=== PATIENT | male | born 1985 | race Caucasian/White ===

== ENCOUNTER → 2020-05-02 | Outpatient (CLI) | payer OTHER | END | disposition home or self-care (01) | LOC: LABWHC1 16:10 | PROVIDERS: ATTEND Family Medicine | DX: R05 Cough (principal) | CPT/HCPCS: U0003; C9803 ==

== ENCOUNTER → 2020-05-13 | Outpatient (CLI) | payer OTHER ==
--- NOTE | 2020-05-13 10:58 | XR ---
EXAMINATION TYPE: XR chest 2V DATE OF EXAM: 05/13/2020 COMPARISON: NONE HISTORY: Cough and congestion. TECHNIQUE: Frontal and lateral views of the chest are obtained. FINDINGS: There is no focal air space opacity, pleural effusion, or pneumothorax seen. The cardiac silhouette size is within normal limits. Bilateral hilar prominence noted. The osseous structures ar e intact. IMPRESSION: No suspicious acute process. Bilateral hilar prominence, cannot exclude hilar adenopathy . Consider contrast-enhanced CT study to further evaluate.
== END | disposition home or self-care (01) ==
LOC: RADXRMAIN 10:26
PROVIDERS: ATTEND Family Medicine
DX: R59.0 Localized enlarged lymph nodes (principal)
CPT/HCPCS: 71046

== ENCOUNTER → 2020-05-17 | Outpatient (CLI) | payer OTHER ==
--- NOTE | 2020-05-17 15:18 | CT ---
EXAMINATION TYPE: CT chest w con DATE OF EXAM: 05/17/2020 COMPARISON: None HISTORY: abnormal cxr CT DLP: 511 mGycm Automated exposure control for dose reduction was used. CONTRAST: CT scan of the chest is performed with IV Contrast, patient injected with 100 mL of Isovue 300. FINDINGS: LUNGS: The lungs are grossly clear, there is no concerning parenchymal mass or nodule identified. T here is no pleural effusion or pneumothorax seen. The tracheobronchial tree is patent. MEDIASTINUM there is hilar and mediastinal adenopathy noted. Right hilar lymph node measures 3 cm. Blake bcarinal adenopathy measures 2.7 cm in short axis. Right paratracheal adenopathy measures 2.5 cm. Pre vascular space adenopathy measuring up to 1 cm. UPPER ABDOMEN: No significant abnormality appreciate d. OTHER: No additional significant abnormality is seen. IMPRESSION: 1. Hilar and mediastinal adenopathy as noted above. Correlate for lymphoma\leukemia. Adenopathy of ot her etiology is not excluded.
== END | disposition home or self-care (01) ==
LOC: RADCTMAIN 14:49
PROVIDERS: ATTEND Family Medicine
DX: R59.1 Generalized enlarged lymph nodes (principal)
CPT/HCPCS: 71260; Q9967

== ENCOUNTER 2020-06-12 20:17 | Emergency (ER) | payer OTHER ==
[2020-06-12 20:21] VITALS: TEMP 98.4
[2020-06-12] MEDS ORDERED: SODIUM CHLORIDE 0.9% 500 ML 500 ML IV STA ×2 (20:39→22:48)
[2020-06-12] MEDS ORDERED: MORPHINE SULFATE 4 MG/ML SYRINGE IM STA (20:40)
--- NOTE | 2020-06-12 20:54 | ED ---
General Adult HPI - General Chief complaint: Abdominal Pain Stated complaint: Abd/Leg Pain Time Seen by Provider: 06/12/20 20:25 Source: patient Mode of arrival: ambulatory Limitations: no limitations - History of Present Illness Initial comments: 35-year-old male presents to the emergency department for a chief complaint of right upper quadrant pain and left upper posterior leg pain. Patient states these both started at the same time about one hour ago. Patient states it is painful to press on his ribs in this area. Patient denies pain with movement of his left leg. Patient denies nausea or vomiting. Denies fevers. Patient did take Motrin prior to arrival. patient reports he was recently diagnosed with abnormal lymph nodes and is being biopsied for lymphoma next week. Patient has no other complaints at this time including shortness of breath, chest pain, nausea or vomiting, headache, or visual changes. - Related Data Home Medications Medication Instructions Recorded Confirmed Albuterol Sulfate [Proair Hfa] 2 puff INHALATION RT-Q4H PRN 06/12/20 06/12/20 Cetirizine HCl 10 mg PO DAILY 06/12/20 06/12/20 Ibuprofen 800 mg PO Q8H PRN 06/12/20 06/12/20 Allergies Allergy/AdvReac Type Severity Reaction Status Date / Time No Known Allergies Allergy Verified 06/12/20 21:11 Review of Systems ROS Statement: Those systems with pertinent positive or pertinent negative responses have been documented in the HPI. ROS Other: All systems not noted in ROS Statement are negative. Past Medical History Past Medical History: No Reported History History of Any Multi-Drug Resistant Organisms: None Reported Additional Past Surgical History / Comment(s): eye surgery, Past Psychological History: No Psychological Hx Reported Smoking Status: Never smoker Past Alcohol Use History: Occasional Past Drug Use History: None Reported General Exam Limitations: no limitations General appearance: alert, in no apparent distress Head exam: Present: atraumatic Eye exam: Present: normal appearance, PERRL, EOMI ENT exam: Present: normal exam, mucous membranes moist Neck exam: Present: normal inspection, full ROM. Absent: tenderness Respiratory exam: Present: normal lung sounds bilaterally, chest wall tenderness (Right-sided lateral chest wall tenderness.). Absent: respiratory distress Cardiovascular Exam: Present: regular rate, normal rhythm, normal heart sounds GI/Abdominal exam: Present: soft, normal bowel sounds. Absent: distended, tenderness, guarding, rebound, rigid Extremities exam: Present: full ROM (Full range motion of the left lower ex tremity.), normal capillary refill (Capillary refill is 2 seconds, DP pulse 2+ of the lower extremity). Absent: tenderness (No tenderness to left lower extremity.) Neurological exam: Present: alert Course Vital Signs 06/12/20 06/12/20 20:18 23:11 Temperature 98.4 F Pulse Rate 83 80 Respiratory 16 18 Rate Blood Pressure 168/104 121/79 O2 Sat by Pulse 99 98 Oximetry EKG Findings - EKG Comments: EKG Findings:: Normal sinus rhythm, ventricular rate 90, KY interval 150, QTC 440 Medical Decision Making - Medical Decision Making Vitals are stable. CBC and CMP are unremarkable. There is some slight elevation in creatinine of 1.36, patient hydrated. Given patient's right upper quadrant/ chest pain with history of likely new Diagnosis d-dimer was ordered which was elevated.CT abdomen and pelvis shows a few enlarged retroperitoneal lymph nodes compete level with patient's history of lymphoma. No pulmonary embolism. There is extensive mediastinal and right hilar lymphadenopathy compatible with lymphoma. At this time patient was reevaluated and did have significant improvement in symptoms. He is following up next week for his biopsy. Patient will return to the emergency room for any worsening symptoms. - Lab Data Result diagrams: 06/12/20 21:11 06/12/20 21:11 Lab Results 06/12/20 06/12/20 06/12/20 Range/Units 21:11 21:11 21:11 WBC 11.3 H (3.8-10.6) k/uL RBC 4.79 (4.30-5.90) m/uL Hgb 13.2 (13.0-17.5) gm/dL Hct 39.9 (39.0-53.0) % MCV 83.3 (80.0-100.0) fL MCH 27.5 (25.0-35.0) pg MCHC 33.0 (31.0-37.0) g/dL RDW 14.3 (11.5-15.5) % Plt Count 386 (150-450) k/uL MPV 7.7 Neutrophils % 64 % Lymphocytes % 26 % Monocytes % 6 % Eosinophils % 3 % Basophils % 0 % Neutrophils # 7.2 (1.3-7.7) k/uL Lymphocytes # 3.0 (1.0-4.8) k/uL Monocytes # 0.7 (0-1.0) k/uL Eosinophils # 0.3 (0-0.7) k/uL Basophils # 0.0 (0-0.2) k/uL D-Dimer 0.66 H (<0.60) mg/L FEU Sodium (137-145) mmol/L Potassium (3.5-5.1) mmol/L Chloride (98-107) mmol/L Carbon Dioxide (22-30) mmol/L Anion Gap mmol/L BUN (9-20) mg/dL Creatinine (0.66-1.25) mg/dL Est GFR (CKD-EPI)AfAm (>60 ml/min/1.73 sqM) Est GFR (CKD-EPI)NonAf (>60 ml/min/1.73 sqM) Glucose (74-99) mg/dL Calcium (8.4-10.2) mg/dL Total Bilirubin (0.2-1.3) mg/dL AST (17-59) U/L ALT (4-49) U/L Alkaline Phosphatase (38-126) U/L Troponin I (0.000-0.034) ng/mL Total Protein (6.3-8.2) g/dL Albumin (3.5-5.0) g/dL Amylase (30-110) U/L Lipase (23-300) U/L Urine Color Light Yellow Urine Appearance Clear (Clear) Urine pH 5.5 (5.0-8.0) Ur Specific Blanco 1.013 (1.001-1.035) Urine Protein Negative (Negative) Urine Glucose (UA) Negative (Negative) Urine Ketones Negative (Negative) Urine Blood Negative (Negative) Urine Nitrite Negative (Negative) Urine Bilirubin Negative (Negative) Urine Urobilinogen <2.0 (<2.0) mg/dL Ur Leukocyte Esterase Negative (Negative) 06/12/20 06/12/20 Range/Units 21:11 21:11 WBC (3.8-10.6) k/uL RBC (4.30-5.90) m/uL Hgb (13.0-17.5) gm/dL Hct (39.0-53.0) % MCV (80.0-100.0) fL MCH (25.0-35.0) pg MCHC (31.0-37.0) g/dL RDW (11.5-15.5) % Plt Count (150-450) k/uL MPV Neutrophils % % Lymphocytes % % Monocytes % % Eosinophils % % Basophils % % Neutrophils # (1.3-7.7) k/uL Lymphocytes # (1.0-4.8) k/uL Monocytes # (0-1.0) k/uL Eosinophils # (0-0.7) k/uL Basophils # (0-0.2) k/uL D-Dimer (<0.60) mg/L FEU Sodium 139 (137-145) mmol/L Potassium 4.3 (3.5-5.1) mmol/L Chloride 104 (98-107) mmol/L Carbon Dioxide 25 (22-30) mmol/L Anion Gap 10 mmol/L BUN 20 (9-20) mg/dL Creatinine 1.36 H (0.66-1.25) mg/dL Est GFR (CKD-EPI)AfAm 78 (>60 ml/min/1.73 sqM) Est GFR (CKD-EPI)NonAf 67 (>60 ml/min/1.73 sqM) Glucose 107 H (74-99) mg/dL Calcium 9.5 (8.4-10.2) mg/dL Total Bilirubin 0.3 (0.2-1.3) mg/dL AST 22 (17-59) U/L ALT 31 (4-49) U/L Alkaline Phosphatase 130 H (38-126) U/L Troponin I <0.012 (0.000-0.034) ng/mL Total Protein 7.4 (6.3-8.2) g/dL Albumin 4.2 (3.5-5.0) g/dL Amylase 61 (30-110) U/L Lipase 170 (23-300) U/L Urine Color Urine Appearance (Clear) Urine pH (5.0-8.0) Ur Specific Blanco (1.001-1.035) Urine Protein (Negative) Urine Glucose (UA) (Negative) Urine Ketones (Negative) Urine Blood (Negative) Urine Nitrite (Negative) Urine Bilirubin (Negative) Urine Urobilinogen (<2.0) mg/dL Ur Leukocyte Esterase (Negative) Disposition Clinical Impression: Lymphadenopathy, Abdominal pain, Leg pain Disposition: HOME SELF-CARE Condition: Good Instructions (If sedation given, give patient instructions): Abdominal Pain (ED ) Additional Instructions: Please follow up with primary care doctor in one to 2 days. Return to the emergency room for any worsening symptoms. Is patient prescribed a controlled substance at d/c from ED?: No Referrals: Rosa Frost III, MD [Primary Care Provider] - 1-2 days Time of Disposition: 00:06
[2020-06-12 21:19] LABS: Appearance,Urine Clear (Clear); Basophils % (A) 0 %; Bilirubin,Urine Negative (Negative); Blood,Urine Negative (Negative); Color,Urine Light Yellow; Eosinophils # (A) 0.3 k/uL (0-0.7); Eosinophils % (A) 3 %; Glucose,Urine (UA) Negative (Negative); HCT 39.9 % (39.0-53.0); HGB 13.2 gm/dL (13.0-17.5); Ketones,Urine Negative (Negative); Leukocyte Esterase,Urine Negative (Negative); Lymphocytes % (A) 26 %; MCH 27.5 pg (25.0-35.0); MCV 83.3 fL (80.0-100.0); Mean Platelet Volume 7.7; Monocytes # (A) 0.7 k/uL (0-1.0); Monocytes % (A) 6 %; Neutrophils # (A) 7.2 k/uL (1.3-7.7); Neutrophils % (A) 64 %; Nitrite,Urine Negative (Negative); PH, Urine 5.5 (5.0-8.0); Platelet Count 386 k/uL (150-450); Protein,Urine Negative (Negative); RBC 4.79 m/uL (4.30-5.90); RDW 14.3 % (11.5-15.5); Specific Gravity,Urine 1.013 (1.001-1.035); Urobilinogen,Urine <2.0 mg/dL (<2.0); WBC 11.3 k/uL (3.8-10.6)
[2020-06-12 21:34] LABS: Albumin 4.2 g/dL (3.5-5.0); Calcium 9.5 mg/dL (8.4-10.2); Potassium 4.3 mmol/L (3.5-5.1); Total Bilirubin 0.3 mg/dL (0.2-1.3); Total Protein 7.4 g/dL (6.3-8.2)
[2020-06-12 23:13] VITALS: BP 121/79; PULSE 80; RESP 18
--- NOTE | 2020-06-12 23:29 | CT ---
EXAM: CT Angiography Chest With Intravenous Contrast CLINICAL HISTORY: ITS.REASON CT Reason: pain, being worked up for lymphoma TECHNIQUE: Axial computed tomographic angiography images of the chest with intravenous contrast. CTDI is 23.73 mGy and DLP is 954.15 mGy-cm. This CT exam was performed using one or more of the following dose reduction techniques: automated exposure control, adjustment of the mA and/or kV according to patient size, and/or use of iterative reconstruction technique. MIP reconstructed images were created and reviewed. COMPARISON: 05/17/2020. FINDINGS: Pulmonary arteries: No central pulmonary emboli. No peripheral pulmonary emboli. Aorta: Thoracic aorta is unremarkable. No thoracic aortic aneurysm. Lungs: Presumed minimal areas of subsegmental atelectasis bilaterally. The airways are unremarkable. No mass. Pleural space: Unremarkable. No significant effusion. No pneumothorax. Heart: Heart is normal in size. No significant pericardial effusion. No evidence of RV dysfunction. Mediastinum: There is extensive mediastinal are lymphadenopathy compatible patient's history of lymphoma. There is 5.1 x 3.9 cm right hilar lymphadenopathy. There are subcarinal lymphadenopathy. Thyroid: Thyroid gland is unremarkable. Bones/joints: Mild kyphosis. The sternum is unremarkable. No acute fracture. No dislocation. Soft tissues: Unremarkable. Lymph nodes: See above. Liver: Fatty infiltration of the liver. IMPRESSION: 1. Extensive mediastinal and right hilar lymphadenopathy compatible with lymphoma. 2. No pulmonary embolus detected.
--- NOTE | 2020-06-12 23:39 | CT ---
EXAM: CT Abdomen and Pelvis With Intravenous Contrast CLINICAL HISTORY: ITS.REASON CT Reason: pain, being worked up for lymphoma TECHNIQUE: Axial computed tomography images of the abdomen and pelvis with intravenous contrast. CTDI is 23.73 mGy and DLP is 954.15 mGy-cm. This CT exam was performed using one or more of the following dose reduction techniques: automated exposure control, adjustment of the mA and/or kV according to patient size, and/or use of iterative reconstruction technique. COMPARISON: No previous study. FINDINGS: Lung bases: Unremarkable. No mass. No consolidation. Pleural space: No pleural effusions. ABDOMEN: Liver: Mild fatty liver. The liver and the spleen enhance uniformly. Gallbladder and bile ducts: The gallbladder is unremarkable. No calcified stones. No ductal dilation. Pancreas: The head, body, tail of the pancreas are unremarkable. No ductal dilation. Spleen: See above. Adrenals: Unremarkable. No mass. Kidneys and ureters: Both kidneys are shown to excrete contrast bilaterally without hydronephrosis. 1 cm simple left renal cyst which requires no follow-up. Stomach and bowel: Moderate quantity of stool throughout the colon without bowel obstruction. No mucosal thickening. PELVIS: Appendix: The appendix is seen on axial image 61 and is unremarkable. Bladder: Unremarkable. No mass. Reproductive: Unremarkable as visualized. ABDOMEN and PELVIS: Intraperitoneal space: Unremarkable. No free air. No significant fluid collection. Bones/joints: Mild osteoarthritic changes about the sacroiliac joints. No acute fracture. No dislocation. Soft tissues: Unremarkable. Vasculature: Abdominal aorta is normal in caliber. Flow is demonstrated within the celiac, SMA, the renal arteries, and JOLYNN. No abdominal aortic aneurysm. Lymph nodes: A few enlarged retroperitoneal lymph nodes best seen on axial image 33 compatible patient's history of lymphoma. There is no pelvic or inguinal lymphadenopathy noted. No spondylolysis. IMPRESSION: 1. Fatty liver. 2. A few enlarged retroperitoneal lymph nodes compatible patient's history of lymphoma. 3. PET imaging will provide additional information. 4. No hydronephrosis. 5. No bowel obstruction. 6. The appendix is unremarkable.
== END 2020-06-13 00:21 | disposition home or self-care (01) ==
LOC: EC 20:17
DX: R10.11 Right upper quadrant pain (principal); R59.0 Localized enlarged lymph nodes; M79.605 Pain in left leg; Z85.72 Personal history of non-Hodgkin lymphomas
CPT/HCPCS: 36415; 93005; 85379; 80053; 82150; 83690; 84484; 85025; 81003; 71275; 74177; 99284; 96360; 96361; 96372; J2270; Q9967

== ENCOUNTER → 2020-06-21 | Outpatient (CLI) | payer OTHER ==
--- NOTE | 2020-06-25 11:19 | PE ---
Nuclear medicine PET/CT HISTORY: C85.88, lymphoma, initial, chest and abdomen, bones Patient received 10 mCi F-18 intravenously delayed scanning was performed from skull base to the mid thighs. Localization and attenuation correction CT scan was performed. Correlation to CT chest abdomen pelvis 06/12/2020 Chest and neck: Supraclavicular nodes left greater than right, left cervical adenopathy present, supr aclavicular nodes show hypermetabolic uptake, SUV the supraclavicular node on the left is 6.3. Retrop ectoral node on the right shows associated hypermetabolic uptake, axial image 78, SUV is 5.3. Extensi ve mediastinal shotty nodes are present with associated mild uptake, prevascular node shows increased uptake, SUV 8.1. Right hilar uptake shows SUV 3.9. There is no evident lung mass, pleural or pericar dial effusion. Mild subcarinal uptake. Retrocaval pretracheal uptake is mild as is superior mediastin al uptake, SUV 4.6. ABDOMEN: Retroperitoneal nodes adjacent to the splenoportal confluence, posterior to the pancreatic h ead shows associated hypermetabolic uptake, SUV 7.6. Aortocaval node shows SUV 6.2. There is no ascit es. Osseous structures are remarkable for left posterior ilium uptake which shows corresponding lytic jignesh ency on axial image #204, uptake shows SUV 17.3, there is a 10th rib on the right which shows associa carrie uptake, SUV 11.6. IMPRESSION: Metastatic disease, findings compatible with patient's history of lymphoma
== END | disposition home or self-care (01) ==
LOC: RADPETMAIN 13:20
PROVIDERS: ATTEND Family Medicine
DX: C85.88 Other specified types of non-Hodgkin lymphoma, lymph nodes of multiple sites (principal)
CPT/HCPCS: 78815; A9552

== ENCOUNTER → 2020-07-08 | Outpatient (CLI) | payer OTHER ==
--- NOTE | 2020-07-09 08:01 | ECHOF ---
Referral Reason:Z01.818 Chemo exposure MEASUREMENTS -------- HEIGHT: 182.9 cm WEIGHT: 106.6 kg BP: RVIDd: 2.8 cm (< 3.3) IVSd: 1.1 cm (0.6 - 1.1) LVIDd: 4.8 cm (3.9 - 5.3) LVPWd: 0.9 cm (0.6 - 1.1) IVSs: 1.5 cm LVIDs: 3.4 cm LVPWs: 1.4 cm LA Diam: 3.5 cm (2.7 - 3.8) LAESV Index (A-L): 27.10 ml/m Ao Diam: 3.3 cm (2.0 - 3.7) AV Cusp: 1.8 cm (1.5 - 2.6) MV EXCURSION: 21.866 mm (> 18.000) MV EF SLOPE: 66 mm/s (70 - 150) EPSS: 0.4 cm MV E Amos: 0.36 m/s MV DecT: 196 ms MV A Amos: 0.55 m/s MV E/A Ratio: 0.65 RAP: 5.00 mmHg RVSP: 27.00 mmHg FINDINGS -------- Sinus rhythm. This was a technically adequate study. LV size, wall thickness and systolic function are normal, with an EF greater than 55%. The left bailey tricular size is normal. The right ventricle is normal in size. Normal LA size by volume 22+/-6 ml/m2. The right atrial size is normal. The aortic valve is trileaflet, and appears structurally normal. No aortic stenosis or regurgitation. The mitral valve is normal. Mild mitral regurgitation is present. The tricuspid valve appears structurally normal. Mild tricuspid regurgitation present. Right vent ricular systolic pressure is normal at < 35 mmHg. There is no pulmonic regurgitation present. The aortic root size is normal. There is no pericardial effusion. CONCLUSIONS -------- 1. LV size, wall thickness and systolic function are normal, with an EF greater than 55%. 2. The left ventricular size is normal. 3. The aortic valve is trileaflet, and appears structurally normal. No aortic stenosis or regurgitati on. 4. Mild mitral regurgitation is present. 5. Mild tricuspid regurgitation present. 6. There is no pericardial effusion. ROTOR CASTING MACHINE OPERATOR: Arianna Garza RDCS
== END | disposition home or self-care (01) ==
LOC: RADECHMAIN 14:52
PROVIDERS: ATTEND Internal Medicine Hematology & Oncology
DX: I08.1 Rheumatic disorders of both mitral and tricuspid valves (principal)
CPT/HCPCS: 93306

== ENCOUNTER → 2020-08-30 | Outpatient (CLI) | payer OTHER ==
--- NOTE | 2020-08-31 11:57 | PE ---
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 Localization and attenuation correction CT scan was performed. Correlation to prior nuclear medicine PET/CT 06/21/2020 Chest and neck: The activity seen on previous exam along the cervical and supraclavicular regions is improved. Previously identified enlarged nodes have diminished in size. There is no axillary, mediast inal, or hilar adenopathy. The nodes have decreased in size, no suspicious uptake within the chest. N o suspicious lung mass. No pleural or pericardial effusion. Port-A-Cath is noted incidentally via rig ht jugular approach, port in the right pectoral region, tip of the catheter is at the cavoatrial junc tion. Subpectoral node on the right is no longer showing abnormal increased uptake. ABDOMEN: Previously identified areas of hypermetabolic uptake involving the retroperitoneal nodes is not seen, there is no evident residual adenopathy. There is no ascites. No pelvic adenopathy. No evid ent inguinal adenopathy or suspicious uptake. Osseous structures show no suspicious uptake. Lytic lucency in the left ilium is again noted but show s no suspicious uptake. Previous lower rib uptake on the right anteriorly at the 10th rib is improved . IMPRESSION: Tumor response as described. No residual suspicious hypermetabolic uptake. No evident savannah nopathy.
== END | disposition home or self-care (01) ==
LOC: RADPETMAIN 09:26
PROVIDERS: ATTEND Internal Medicine Hematology & Oncology
DX: C81.78 Other Hodgkin lymphoma, lymph nodes of multiple sites (principal)
CPT/HCPCS: 78815; A9552

== ENCOUNTER → 2020-11-20 | Outpatient (CLI) | payer OTHER ==
[2020-11-20 10:47] LABS: African American GFR (CKD) >90 (>60 ml/min/1.73 sqM); Blood Urea Nitrogen 20 mg/dL (9-20); Non-African American GFR(CKD) >90 (>60 ml/min/1.73 sqM)
--- NOTE | 2020-11-20 22:10 | CT ---
EXAMINATION TYPE: CT ChestAbdPelvis wo/w con DATE OF EXAM: 11/20/2020 INDICATION: Follow up scan per patient COMPARISON: PET CT 4- CT DLP: 3358.5 mGycm CONTRAST: Performed with Oral Contrast and without and with IV Contrast, patient injected with 100 mL of Isovue 300. TECHNIQUE: Axial images at 5 mm thick sections. Reconstructed images in the coronal plane. Delayed images through the kidneys. FINDINGS: CT CHEST: Portion of the thyroid visualized is normal. No suspicious lung nodules or focal infiltrates are present. No enlarged mediastinal or hilar adenopathy is evident. The ascending aorta diameter at the level of the main pulmonary artery is 3.0 cm. The main pulmonary artery diameter at the bifurcation is 2.8 cm. Some mild coronary artery calcification is present. CT ABDOMEN: Liver: Normal Spleen: Normal Pancreas: Normal Adrenal glands: The adrenal glands are normal. Gallbladder: Normal Kidneys: No masses are evident. No hydronephrosis is present. No cysts are present. No renal stone s are identified. Aorta: Normal Inferior vena cava: Normal. CT PELVIS: Loops of bowel within the abdomen and pelvis are normal. There are loops of bowel which are incom pletely distended or lack oral contrast limiting their evaluation. Appendix: Normal as visualized. Urinary bladder: Normal. Genitourinary structures: Prostate is normal Osseous structures: No suspicious lytic or sclerotic lesions. Small bone island may be within the lef t femoral head. Adenopathy: No enlarged mediastinal hilar retrocrural periaortic retrocaval adenopathy is evident. No suspicious greater canal or iliac chain adenopathy is evident. IMPRESSIONS: 1. No suspicious adenopathy.
== END | disposition home or self-care (01) ==
LOC: RADCTMAIN 10:05
PROVIDERS: ATTEND Internal Medicine Hematology & Oncology
DX: C81.98 Hodgkin lymphoma, unspecified, lymph nodes of multiple sites (principal)
CPT/HCPCS: 82565; 84520; 71270; 74178; 36415; Q9967

== ENCOUNTER → 2021-02-21 | Outpatient (CLI) | payer OTHER ==
--- NOTE | 2021-02-21 10:18 | CT ---
EXAMINATION TYPE: CT ChestAbdPelvis w con DATE OF EXAM: 02/21/2021 COMPARISON: Most recent CT November 20, 2020 and older studies. HISTORY: Hodgkin's Lymphoma CT DLP: 1873.10 mGycm. Automated Exposure Control for Dose Reduction was Utilized. CONTRAST: CT scan of the thorax, abdomen and pelvis is performed with IV Contrast, patient injected with 100 mL of Isovue 300. FINDINGS: LUNGS: The lungs are grossly clear, there is no concerning parenchymal mass or nodule identified. T here is no pleural effusion or pneumothorax seen. The tracheobronchial tree is patent. MEDIASTINUM: There are no new or recurrent greater than 1 cm hilar or mediastinal lymph nodes. No c ardiomegaly or pericardial effusion is seen. OTHER: Interval removal of right internal jugular Mediport catheter. LIVER/GB: No significant abnormality is appreciated. PANCREAS: No significant abnormality is seen. SPLEEN: No significant abnormality is seen. ADRENALS: No significant abnormality is seen. KIDNEYS: Stable roughly 1.0 cm thin-walled cyst upper pole left kidney series 7 image 28. BOWEL: Oral contrast reaches level of distal left colon. No suspicious small or large bowel dilatatio n. Slightly redundant sigmoid colon with moderate to severe sigmoid rectal colonic fecal prominence GENITAL ORGANS: No gross abnormality seen. LYMPH NODES: No new or recurrent greater than 1cm abdominal or pelvic lymph nodes are appreciated. OSSEOUS STRUCTURES: There is S-shaped scoliosis redemonstrated. Subcentimeter sclerotic focus favor b enign bone island left femoral head coronal image 57 redemonstrated. Mild facet arthropathy lower lum bar levels. Stable lucent 3.1 x 1.3 cm lucent lesion left iliac bone axial image 97 corresponding to hypermetabol ic lesion on original PET/CT. OTHER: No significant additional abnormality is seen. IMPRESSION: No new or recurrent adenopathy to suggest active lymphoma recurrence.
== END | disposition home or self-care (01) ==
LOC: RADCTMAIN 07:49
PROVIDERS: ATTEND Internal Medicine Hematology & Oncology
DX: C81.99 Hodgkin lymphoma, unspecified, extranodal and solid organ sites (principal)
CPT/HCPCS: 71260; 74177; Q9967 ×2

== ENCOUNTER → 2021-05-26 | Outpatient (CLI) | payer OTHER ==
--- NOTE | 2021-05-26 10:00 | CT ---
EXAMINATION TYPE: CT ChestAbdPelvis w con DATE OF EXAM: 05/26/2021 COMPARISON: 02/21/2021 HISTORY: Hodgkins lymphoma follow up CT DLP: 1876.5 mGycm CONTRAST: CT scan of the chest, abdomen and pelvis is performed with Oral Contrast and with IV Contrast, patien t injected with 100 mL of Isovue 300. CT Chest: LUNGS: The lungs are clear and free of infiltrate or atelectasis. No pulmonary nodule or mass is det ected. No pleural effusion or CT evidence of interstitial lung disease. MEDIASTINUM: Thoracic aorta is of normal caliber. The heart is not enlarged. No evidence for media stinal mass or adenopathy. HILAR STRUCTURES: No evidence for mass. No hilar adenopathy is appreciated. OTHER: No significant abnormality. CONTRAST CT ABDOMEN AND PELVIS FINDINGS: LIVER/GB: No calcified gallstones. No space occupying hepatic lesion. Biliary tree is of normal ca liber. PANCREAS: No inflammation. No distinct mass. SPLEEN: No splenic enlargement. No lesion seen. ADRENALS: No nodule. No thickening. KIDNEYS/BLADDER: No hydronephrosis. No nephrolithiasis. Stable simple cyst upper pole left kidney. BOWEL: Normal appendix. Normal bowel caliber. No inflammation. Moderate fecal stasis identified. GENITAL ORGANS: No gross abnormality. LYMPH NODES: No greater than 1cm abdominal or pelvic lymph nodes are appreciated. AORTA: No significant abnormality. OSSEOUS STRUCTURES: No significant abnormality is seen. OTHER: No significant additional abnormality is seen. IMPRESSION: 1. No evidence for recurrent or residual adenopathy at this time.
== END | disposition home or self-care (01) ==
LOC: RADCTMAIN 08:03
PROVIDERS: ATTEND Internal Medicine Hematology & Oncology
DX: C81.98 Hodgkin lymphoma, unspecified, lymph nodes of multiple sites (principal)
CPT/HCPCS: 71260; 74177; Q9967

== ENCOUNTER → 2021-09-15 | Outpatient (CLI) | payer OTHER ==
--- NOTE | 2021-09-15 22:15 | CT ---
EXAMINATION TYPE: CT ChestAbdPelvis w con DATE OF EXAM: 09/15/2021 COMPARISON: CT dated 05/26/2021 HISTORY: Obs for Mets. Hodgkin's lymphoma CT DLP: 1816 mGycm Automated exposure control for dose reduction was used. CONTRAST: CT scan of the chest, abdomen and pelvis is performed with Oral Contrast and with IV Contrast, patien t injected with 100 mL of Isovue 300. FINDINGS: LUNGS: The lungs are grossly clear, there is no concerning parenchymal mass or nodule identified. T here is no pleural effusion or pneumothorax seen. The tracheobronchial tree is patent. MEDIASTINUM: There are no greater than 1 cm hilar or mediastinal lymph nodes. No cardiomegaly. Unrema rkable major mediastinal vessels. No pericardial effusion is seen. OTHER: No aggressive bone lesion. LIVER/GB: No significant abnormality is appreciated. PANCREAS: No significant abnormality is seen. SPLEEN: No significant abnormality is seen. ADRENALS: No significant abnormality is seen. KIDNEYS: Few bilateral renal cysts, otherwise unremarkable kidneys. BOWEL: Unremarkable stomach, duodenum and small bowel. Questionable mild wall thickening of the rect um, please correlate clinically. Moderate fecal loading of the colon. REPRODUCTIVE ORGANS: No gross abnormality seen. LYMPH NODES: No greater than 1 cm abdominal or pelvic lymph nodes are appreciated. OSSEOUS STRUCTURES: Stable sclerotic area at the posterior aspect of the left femoral neck. No aggres sive bone lesion otherwise. OTHER: Unremarkable abdominal aorta and IVC. No sizable ascites. Fat-containing umbilical hernia. IMPRESSION: No evidence of lymphoma recurrence seen in the chest, abdomen or the pelvis. Incidental findings as d escribed above.
== END | disposition home or self-care (01) ==
LOC: RADCTMAIN 16:02
PROVIDERS: ATTEND Internal Medicine Hematology & Oncology
DX: C81.98 Hodgkin lymphoma, unspecified, lymph nodes of multiple sites (principal)
CPT/HCPCS: 71260; 74177; Q9967

== ENCOUNTER → 2021-11-03 | Outpatient (CLI) | payer OTHER ==
--- NOTE | 2021-11-03 23:46 | CT ---
EXAMINATION TYPE: CT ChestAbdPelvis w con DATE OF EXAM: 11/03/2021 COMPARISON: CT dated 09/15/2021 HISTORY: Observe for mets. Hx Hodgkin's Lymphoma. Pt not reporting any issues. CT DLP: 2086.5 mGycm Automated exposure control for dose reduction was used. CONTRAST: CT scan of the chest, abdomen and pelvis is performed with Oral Contrast and with IV Contrast, patien t injected with 70 mL of Isovue 300. FINDINGS: LUNGS: The lungs are grossly clear, there is no concerning parenchymal mass or nodule identified. T here is no pleural effusion or pneumothorax seen. The tracheobronchial tree is patent. MEDIASTINUM: There are no greater than 1 cm hilar or mediastinal lymph nodes. No pericardial effusi on is seen. OTHER: No aggressive bone lesion. LIVER/GB: No significant abnormality is appreciated. PANCREAS: No significant abnormality is seen. SPLEEN: No significant abnormality is seen. ADRENALS: No significant abnormality is seen. KIDNEYS: Stable renal cysts, otherwise unremarkable kidneys. BOWEL: No bowel obstruction. Fecal loading of the rectum. Nonspecific diffuse wall thickening of the colon which could be related to mild chronic colitis, please correlate clinically. REPRODUCTIVE ORGANS: No gross abnormality seen. LYMPH NODES: No greater than 1 cm abdominal or pelvic lymph nodes are appreciated. OSSEOUS STRUCTURES: No aggressive bone lesion. OTHER: Fat-containing umbilical hernia. IMPRESSION: No evidence of lymphoma recurrence in the chest, abdomen or the pelvis. Incidental findings as descri bed above.
== END | disposition home or self-care (01) ==
LOC: RADCTMAIN 12:10
PROVIDERS: ATTEND Internal Medicine Hematology & Oncology
DX: C81.98 Hodgkin lymphoma, unspecified, lymph nodes of multiple sites (principal)
CPT/HCPCS: 71260; 74177; Q9967